=== PATIENT | male | born 1955 | race Caucasian/White ===

== ENCOUNTER → 2018-12-12 16:40 | Outpatient (CLI) | payer OTHER, SELFPAY ==
--- NOTE | 2018-12-12 | IMM_PTH ---
PATIENT: NOÉ TIDWELL LOC: [facility] U#:[id number] AGE/SX: 70/M ROOM: RE12/12/[address]: Dr. Calin Michelle MD : 1955 BED: DIS: SPEC #: [id number] RECD: 12/14/18 12:30 STATUS: HARINI SLICK #: [id number] MARIO: 12/12/18 00:[address]: Calin Michelle DEPT: IMMUNOHISTOCHEMISTRY RECD BY: Radha Mendoza Tissues: A - PROSTATE RIGHT B - PROSTATE RIGHT E - PROSTATE LEFT Procedures: 34BE12 (add) P40 (add) 34BE12 (initial) PHYSICIAN & [place] [id number] SPECIMEN INFORMATION: Tissue Source: A - Right prostate apex, B - Right prostate mid, E - Left prostate mid Clinical Info: Elevated PSA Specimen Number: [id number] A, B & E CPT code: 00024, 67338 x5 METHODOLOGY: Deparaffinized sections of prefer/formalin-fixed tissue or PAP/DQ stained slides are incubated with monoclonal/polyclonal antibodies/oligonucleotide probes. Localization is made via biotin free immunoperoxidase method. Appropriate controls are performed and reacted as expected. Results on target cell population are indicated in the following table: RESULTS: ANTIBODY / CLONE RESULT Block A P40 (BC28) negative 34BE12 (34BE12) negative Block B P40 (BC28) negative 34BE12 (34BE12) negative Block E P40 (BC28) negative 34BE12 (34BE12) negative These tests were developed and their performance characteristics determined by [facility]. They may not have been cleared or approved by the U.S. Food and Drug Administration. The FDA has determined that such clearance or approval is not necessary. INTERPRETATION: A. Right prostate, apex, core biopsy: A minute focus of adenocarcinoma. B. Right prostate, mid, core biopsy: Adenocarcinoma. E. Left prostate, mid, core biopsy: Adenocarcinoma. AM:alvarez 12/15/18
--- NOTE | 2018-12-12 08:00 | PROSBIL_PTH ---
PATIENT: NOÉ TIDWELL LOC: [facility] U#:[id number] AGE/SX: 70/M ROOM: RE12/12/[address]: Dr. Calin Michelle MD : 1955 BED: DIS: SPEC #: [id number] RECD: 12/13/18 08:47 STATUS: HARINI SLICK #: [id number] MARIO: 12/12/18 08:[address]: Calin Michelle DEPT: SURGICAL PATHOLOGY RECD BY: Blas Durand Tissues: A - PROSTATE RIGHT B - PROSTATE RIGHT C - PROSTATE RIGHT D - PROSTATE LEFT E - PROSTATE LEFT F - PROSTATE LEFT Procedures: PROSTATE BX HEADER OPERATION: Prostate biopsy PRE-OP DIAGNOSIS: Elevated PSA TISSUE SUBMITTED: A - Right apex, B - Right mid, C - Right base, D - Left apex, E - Left mid, F - Left base MICROSCOPIC DIAGNOSIS A. Right prostate, apex, core biopsy: A minute focus of prostatic adenocarcinoma: Midland grade: 3+3=6 Number of cores involved: 1 out of 1 Proportion of tissue involved: <5% Perineural invasion: Not identified. Greatest tumor length: <0.1 cm See comment. B. Right prostate, mid, core biopsy: Prostatic adenocarcinoma: Yoel grade: 3+4=7 Number of cores involved: 1 out of 1 Proportion of tissue involved: ~50% Perineural invasion: Not identified. Greatest tumor length: ~2 mm See comment. C. Right prostate, base, core biopsy: Prostatic adenocarcinoma: Midland grade: 3+4=7 Number of cores involved: 2 out of 2 Proportion of tissue involved: ~80% Perineural invasion: present, focal. Greatest tumor length: 0.8 cm (discontinuous) D. Left prostate, apex, core biopsy: Prostatic stromal tissue, negative for malignancy. E. Left prostate, mid, core biopsy: Prostatic adenocarcinoma: Yoel grade: 3+3=6 Number of cores involved: 3 out of 3 Proportion of tissue involved: ~5% Perineural invasion: Not identified. Greatest tumor length: 0.2 cm (discontinuous) Focal high-grade prostatic intraepithelial neoplasia (HGPIN). See comment. F. Left prostate, base, core biopsy: Prostatic adenocarcinoma: Midland grade: 3+4=7 Number of cores involved: 2 out of 2 Proportion of tissue involved: ~75% Perineural invasion: Not identified. Greatest tumor length: 1 cm SJ:alvarez 12/14/18 COMMENT A, B & E - Immunohistochemistry ([id number]) supports the above diagnosis. Case has been reviewed in consultation with Dr. Brennan who concurs with the above diagnosis. IDC:AM MICROSCOPIC DESCRIPTION Slides are reviewed. GROSS DESCRIPTION A - Received is one container designated prostate, right apex. The specimen consists of one elongated fragment of light larios-white soft tissue measuring 0.5 cm in length and 0.1 cm in diameter. Also present in the container are two minute fragments of larios soft tissue each measuring 0.1 cm in greatest dimension. The specimen is totally submitted in one cassette. B - Received is one container designated prostate, right mid. The specimen consists of one elongated fragment of light larios-white soft tissue measuring 1 cm in length and 0.1 cm in diameter. Also present in the container are three minute fragments of larios soft tissue each measuring 0.1 cm in greatest dimension. The specimen is totally submitted in one cassette. C - Received is one container designated prostate, right base. The specimen consists of two elongated fragments of light larios-white soft tissue measuring 1 and 1.2 cm in length and 0.1 cm in diameter. The specimen is totally submitted in one cassette. D - Received is one container designated prostate, left apex. The specimen consists of two elongated fragments of light larios-white soft tissue measuring 0.5 and 1.5 cm in length and 0.1 cm in diameter. The specimen is totally submitted in one cassette. E - Received is one container designated prostate, left mid. The specimen consists of three elongated fragments of light larios-white soft tissue measuring 0.8 to 1 cm in length and 0.1 cm in diameter. The specimen is totally submitted in one cassette. F - Received is one container designated prostate, left base. The specimen consists of two elongated fragments of light larios-white soft tissue measuring 1 and 1.4 cm in length and 0.1 cm in diameter. The specimen is totally submitted in one cassette. / SJ:alvarez 12/13/18 TC:0 CPT: 37786 x6
== END ==
PROVIDERS: Referring Provider Urology; Visit Provider Urology
DX: R97.20 Elevated prostate specific antigen [PSA] (principal)
CPT/HCPCS: 88305; 88341; 88342; G0416

== ENCOUNTER → 2018-12-20 07:41 | Outpatient (CLI) | payer OTHER, SELFPAY ==
--- NOTE | 2018-12-20 07:49 | CT_ITS ---
STUDY: CT ABDOMEN AND PELVIS WITH CONTRAST REASON FOR EXAM: Male, 63 years old. Prostate cancer. RADIATION DOSAGE (If Supplied By Facility): CTDIvol = ( 17.93 ) mGy, DLP = ( 1964.96 ) mGycm TECHNIQUE: Transaxial images were obtained from the dome of the diaphragm to the symphysis pubis without oral contrast. Isovue 300 100 IV was administered. Sagittal and coronal images were reconstructed. Individualized dose optimization techniques were used for this CT. COMPARISON: None. FINDINGS: The visualized lung bases are unremarkable. The visualized portions of the heart are within normal limits. Hypoattenuated lesion at the liver dome . Small hypoattenuated lesion adjacent to the gallbladder fossa, too small to characterize. Normal gallbladder and extrahepatic biliary system. Normal spleen. Normal pancreas. Normal bilateral adrenal glands. Normal right kidney. Normal left kidney. Normal bilateral ureters. Normal visualized stomach. Normal small intestine. Mild diverticular disease of the sigmoid colon with no localized inflammation.. The appendix is visualized and appears normal. Mild left carotid calcification of the abdominal vasculature. Normal inferior vena cava. Normal retroperitoneum. Normal urinary bladder. Degenerative change of the lumbar spine. Abdominal wall is intact. CT/Abdomen/Pelvis WITH Contrast IMPRESSION: 1. Cyst versus hemangioma at the liver dome. 2. Hypoattenuated focus adjacent to the gallbladder fossa which is too small to characterize but likely represents cysts versus hemangioma. 3. Sigmoid colonic diverticulosis with no evidence of acute diverticulitis. Electronically Signed: Kevin Weeks MD at 3:23 EST Tel , Service support ,
[2018-12-20 08:11] LABS: CREATININE FINGERSTICK 0.9 mg/dL (0.70-1.30); EGFR FINGERSTICK > 60.0000 mL/min (>60)
== END ==
PROVIDERS: Internal Medicine Medical Oncology; Referring Provider Urology; Visit Provider Urology
DX: C61 Malignant neoplasm of prostate (principal)
CPT/HCPCS: 74177; Q9967

== ENCOUNTER → 2018-12-23 10:18 | Outpatient (CLI) | payer OTHER, SELFPAY ==
--- NOTE | 2018-12-23 10:24 | NM_ITS ---
CLINICAL: 63-year-old male with reported history of carcinoma of the prostate. WHOLE BODY 99m Tc MDP RADIONUCLIDE BONE SCINTIGRAPHY COMPARISON: CT of the abdomen-pelvis report 12/20/2018 FINDINGS: Following the intravenous administration of 26.7 mCi of 99m Tc MDP, whole body bone images reveal: 1. Increased radiopharmaceutical concentration is identified in the eighth and 10th thoracic vertebra posteriorly on the right, the acromioclavicular and sternoclavicular compartments of both shoulders, fifth lumbar vertebra posteriorly on the right, left posterior sacrum, the bilateral wrist articulations, right-left hands, the left knee, bilateral ankles, midfoot bilaterally. 2. The remaining skeletal structures are scintigraphically unremarkable with normal-appearing renal images and urinary bladder activity identified. The left hip arthroplasty is defined without evidence of significant increased radiopharmaceutical concentration. An increase in uptake is defined in the left lacrimal bone, the bilateral mandible and maxilla most consistent with periostitis. NM/Bone Scan Whole Body IMPRESSION: 1. The increase in radiopharmaceutical concentration identified in the thoracic and lumbar spine, sacrum, bilateral shoulders, right and left wrists, both hands, the left knee, ankles bilaterally, the right-left midfoot is most consistent with degenerative arthritis. 2. There is no definitive typical scintigraphic evidence of skeletal metastatic disease on the current examination. Electronically Signed: Donnie Vila DO at 12:52 EST Tel , Service support ,
== END ==
PROVIDERS: Referring Provider Urology; Visit Provider Urology
DX: C61 Malignant neoplasm of prostate (principal)
CPT/HCPCS: 78306

== ENCOUNTER 2019-01-25 05:53 | Day surgery (SDC) | payer OTHER, SELFPAY ==
[2019-01-17 12:59] VITALS: BP 143/84; PULSE 73; RESP 16; TEMP 36.9; O2SAT 98; BMI 32.1
--- NOTE | 2019-01-17 13:15 | SDCEKG_ITS ---
Test Reason : Blood Pressure : / mmHG Vent. Rate : 075 BPM Atrial Rate : 075 BPM P-R Int : 170 ms QRS Dur : 098 ms QT Int : 406 ms P-R-T Axes : 049 -16 029 degrees QTc Int : 453 ms Normal sinus rhythm Incomplete right bundle branch block Borderline ECG Confirmed by DIAMOND BARRIENTOS, GERARDO ([id number]), metropolitan editor LINH DINH ([id number]) on 01/18/2019 8:55:58 AM Referred By: Calin Michelle Confirmed By:GERARDO FIELDS MD
[2019-01-17 13:56] LABS: Hematocrit 42.8 % (40-54); Hemoglobin 14.6 g/dl (13.0-16.5); Mean Corp Hgb Conc 34.1 g/gl (32-36); Mean Corpuscular Hgb 31.3 pg (27.0-32.0); Mean Corpuscular Volume 91.8 fL (80-94); Mean Platelet Vol. 9.2 fl (6.2-12.0); Platelet Count 243 K/mm3 (150-450); RBC Distribution Width CV 12.9 % (11.6-14.6); RBC Distribution Width SD 42.6 fl (35.1-43.9); Red Blood Count 4.66 M/mm3 (4.6-6.2); Scan Indicated on CBC? Y/N NO; White Blood Count 6.6 K/mm3 (4.4-11.0)
[2019-01-17 14:04] LABS: Anion Gap 5 (5-15); BUN 14 mg/dL (7-18); BUN/Creat Ratio 16.9 RATIO (10-20); Calcium,Total 8.8 mg/dL (8.5-10.1); Chloride 100 mmol/L (98-107); Creatinine, Serum 0.83 mg/dL (0.70-1.30); EST Glomerular Filtration Rate 100 mL/min (>60); Est Glom Filt Rate - Afr Amer 120 mL/min (>60); Estimated Creatinine Clearance 84.06 ml/min; Glucose 103 mg/dL (74-106); Potassium 3.6 mmol/L (3.5-5.1); Sodium Level 134 mmol/L (136-145)
--- NOTE | 2019-01-24 14:21 | PCM.HP.BLA ---
History and Physical Date of Admission: 01/25/19 I have prostate cancer. HPI: NOÉ TIDWELL is a 63 year-old male established patient who is here evaluation for treatment of prostate cancer. His prostate cancer was diagnosed 2 weeks ago. His cancer was diagnosed by Dr Michelle. His cancer was diagnosed at [facility]. His PSA at his time of diagnosis was 33. He does not have urinary incontinence. He does not have problems with erectile dysfunction. He has not recently had unwanted weight loss. He is not having pain in new locations. He does have a good appetite. His bowels are moving normally. His most recent PSA is 33. Yoel score 7=(3+4). No perineural invasion. Bone scan negative for any metastatic disease. CT scan was negative for any metastatic disease. wants to proceed with Surgery AUA Symptom Score: He never has to get up to urinate from the time he goes to bed until the time he gets up in the morning. ALLERGIES: None MEDICATIONS: Hydrochlorothiazide Metoprolol Succinate Multivitamin PSH: Hernia Repair Prostate Needle Biopsy - 12/12/2018 Transrectal Biopsy US - 12/12/2018 NON- PSH: Colonoscopy - 2014 Hip Replacement, Left Patient not documented to have received pneumococcal vaccination PMH: Malignant neoplasm of prostate - 12/26/2018 ? Histology/Primary Site: Adenocarcinoma, no subtype (morphologic abnormality), Malignant neoplasm of prostate ? Robbinston Score: 7 (3+4) ? Clinical Staging: [id number], Stage IIC ? Diagnostic Confirmation: Positive histology ? Behaviour, Grade: Uncertain whether benign or malignant, Not applicable ? Laterality: Bilateral ? Provider at the office diagnosed the cancer ? Notes: psa 33 Elevated prostate specific antigen [PSA] - 11/17/2018 Nodular prostate without lower urinary tract symptoms - 11/17/2018 NON- PMH: Essential (primary) hypertension Unspecified hearing loss, unspecified ear Immunizations: None FAMILY HISTORY: None SOCIAL HISTORY: Marital Status: Preferred Language: Tunisian; Ethnicity: Not Or ; Race: White Current Smoking Status: Patient has never smoked. Tobacco Use Assessment Completed: Used Tobacco in last 30 days? Smoking cessation counseling was provided. Does not use smokeless tobacco. Does drink. Does not use drugs. Drinks 4+ caffeinated drinks per day. Has not had a blood transfusion. REVIEW OF SYSTEMS: Constitutional: Patient denies fever, chills, weight loss, and weight gain. Eyes: Patient denies blurry vision, cataracts, and vision problems. Ears, Nose, Mouth, Throat: Patient reports hearing loss. Patient denies sinus infections, nasal stuffiness, and sleep apnea. Cardiovascular: Patient denies chest pains, swollen ankles, irregular heartbeat, and pacemaker/defibrillator. Respiratory: Patient denies shortness of breath, wheezing, use oxygen, cpap at night., and copd. Gastrointestinal: Patient denies abdominal pain, change in bowels, and nausea/vomiting. Genitourinary: Patient denies frequent urination, urinary retention, get up at night to void, leakage of urine, blood in urine, frequent urinary tract infections, history of stones, difficulty starting stream, weak stream, and bedwetting. Musculoskeletal: Patient denies sore muscles, back pain, gout, and arthritis. Integumentary/Skin: Patient denies rash, persistent itching, and skin cancer history. Neurological: Patient denies numbness, dizziness, stroke/tia, and history of falling/unsteadiness.. Hematologic/Lymphatic: Patient denies swollen glands, abnormal bleeding, transfusion history, and blood clots/dvt/pulmonary embolism. Notes: Reviewed previous review of systems 12/26/2018. No changes. VITAL SIGNS: 01/17/2019 01:42 PM Weight 190 lb / 86.18 kg Height 67 in / 170.18 cm BP 140/80 mmHg BMI 29.8 kg/m? - BMI Counseling was provided. PHYSICAL EXAMINATION: Anus and Perineum: No hemorrhoids. No anal stenosis. No rectal fissure, no anal fissure. No edema, no dimple, no perineal tenderness, no anal tenderness. Scrotum: No lesions. No edema. No cysts. No warts. Epididymides: Right: no spermatocele, no masses, no cysts, no tenderness, no induration, no enlargement. Left: no spermatocele, no masses, no cysts, no tenderness, no induration, no enlargement. Testes: No tenderness, no swelling, no enlargement left testes. No tenderness, no swelling, no enlargement right testes. Normal location left testes. Normal location right testes. No mass, no cyst, no varicocele, no hydrocele left testes. No mass, no cyst, no varicocele, no hydrocele right testes. Urethral Meatus: Normal size. No lesion, no wart, no discharge, no polyp. Normal location. Penis: Penis uncircumcised. No foreskin warts, no cracks. No dorsal peyronie's plaques, no left corporal peyronie's plaques, no right corporal peyronie's plaques, no scarring, no shaft warts. No balanitis, no meatal stenosis. Prostate: Prostate about 30 grams. Right lobe firm. Left lobe normal consistency. Symmetrical lobes. No prostate nodule. Left lobe no tenderness, right lobe no tenderness. Seminal Vesicles: Nonpalpable. Sphincter Tone: Normal sphincter. No rectal tenderness. No rectal mass. MULTI-SYSTEM PHYSICAL EXAMINATION: Constitutional: Well-nourished. No physical deformities. Normally developed. Good grooming. Neck: Neck symmetrical, not swollen. Normal tracheal position. Respiratory: No labored breathing, no use of accessory muscles. Lymphatic: No enlargement of neck, axillae, groin. Neurologic / Psychiatric: Oriented to time, oriented to place, oriented to person. No depression, no anxiety, no agitation. Gastrointestinal: No mass, no tenderness, no rigidity, non obese abdomen. Eyes: Normal conjunctivae. Normal eyelids. Musculoskeletal: Normal gait PAST DATA REVIEWED: Source Of History: Patient 10/20/18 PSA Total PSA 33.49 PROCEDURES: Urinalysis - [address]663 Dipstick Dipstick Cont'd Specimen: Voided Blood: Neg Appearance: Clear pH: 8.0 Color: Yellow Protein: Neg Glucose: Normal Urobilinogen: Neg Bilirubin: Neg Nitrites: Neg Ketones: Neg Leukocyte Esterase: Neg ASSESSMENT: ICD-10 Details 1 : Malignant neoplasm of prostate - C61 2 Elevated prostate specific antigen [PSA] - R97.20 3 Nodular prostate without lower urinary tract symptoms - N40.2 PLAN: Document Letter(s): Created for Patient: Clinical Summary Notes: already had XRT in the past, recommended robotic radical prostectomy discussed possible to have incontinence and loss erections or fail to cure and needs more treatments post op. Will proceed with robotic radical prostatectomy will b/l nerve sparing, bowel prep instructions given.
[2019-01-25] VITALS (13 sets, daily range): BP systolic 109–163; BP diastolic 68–95; PULSE 73–108; RESP 16–18; TEMP 36.6–37.7; O2SAT 92–99; BMI 32.1
--- NOTE | 2019-01-25 | PROST_PTH ---
PATIENT: NOÉ TIDWELL LOC: [facility] U#:[id number] AGE/SX: 63/M ROOM: RE01/25/[address]: Dr. Calin Michelle MD : 1955 BED: DIS: 01/26/2019 SPEC #: [id number] RECD: 01/25/19 09:07 STATUS: HARINI RE #: [id number] MARIO: 01/25/19 00:[address]: Calin Michelle DEPT: SURGICAL PATHOLOGY RECD BY: Radha Mendoza ENTERED: 01/25/19 10:41 SP TYPE: PROSTATE OTHR DR: Dr. Sheila Harvey, DO Tissues: A - Lymph node of pelvis, NOS B - Prostate, NOS C - Prostate, NOS D - Lymph node, NOS Procedures: Frozen Section (charge) Surgery Specimen Level IV Surgery Specimen Level V Surgery Specimen Level Comments: @ Specimen number changed from [id number] to [id number] @ on 01/25/19 at 1251 by MARY. HEADER OPERATION: Laparoscopic robotic radical prostatectomy PRE-OP DIAGNOSIS: Malignant neoplasm of prostate, elevated PSA TISSUE SUBMITTED: A - Right pelvic lymph node packet sent for FS at 0903, B - Prostate, C - Fat over prostate, D - Left pelvic lymph node packet FROZEN SECTION DIAGNOSIS A. Right pelvic lymph nodes, biopsy: Three out of three lymph nodes, negative for metastatic carcinoma. SJ:alvarez 01/25/19 MICROSCOPIC DIAGNOSIS A. Right pelvic lymph nodes, biopsy: Three out of three lymph nodes, negative for carcinoma. B. Prostate, radical prostatectomy: Adenocarcinoma. C. Fat over prostate, biopsy: Mature adipose tissue. No evidence of carcinoma. D. Left pelvic lymph node, biopsy: One out of one lymph node, negative for carcinoma. AM:alvarez 01/27/19 COMMENT B. PROSTATE CANCER (RADICAL) SUMMARY: Procedure - radical prostatectomy Prostate size - 4.2 x 3.6 x 3.5 cm Lymph node sampling - see specimens A & D Histologic type - adenocarcinoma Histologic grade (Yoel Pattern): Primary pattern - 4 Secondary pattern - 3 Tertiary pattern - 5 Total Glen score - 7 Tumor Quantitation - 4.2 x 3.3 x 3.2 cm (from glass slides) Extraprostatic extension - present, focal Seminal vesicle invasion - present Margins - uninvolved by invasive carcinoma Treatment effect on carcinoma - unknown Lymph-Vascular invasion - not identified Perineural invasion - present, extensive PATHOLOGIC STAGE: pT3b N0 Mx The above summary is in compliance with [employer] [place] [employer] (CAP) Cancer Protocols Checklist and [place] Joint Committee on Cancer (AJCC), Staging Manual, 8th Ed. Prostate adenocarcinoma is identified in the shaved biopsy of the apex and is also noted in the most basal section of the prostate gland. Carcinoma extends into the seminal vesicles and is noted in the fibrofatty tissue adjacent to the seminal vesicles. Clinical correlation is suggested. Case has been reviewed in consultation with Dr. Santana who concurs with the above diagnosis. IDC:SJ MICROSCOPIC DESCRIPTION Slides are reviewed. GROSS DESCRIPTION A - Received fresh for frozen section diagnosis labeled with the patient's name is a specimen designated right pelvic lymph node packet. The specimen consists of a piece of adipose tissue measuring 4 x 2 x 1 cm. Three nodules consistent with lymph nodes are identified measuring 0.5 to 1.5 cm in greatest dimension. The entire specimen is submitted in three cassettes as follows: 1 - FS, two lymph nodes, one lymph node inked black, 2 - FS, one lymph node, 3 - rest of the specimen. / PETER:alvarez 01/25/19 B - Received in fixative is one container labeled with the patient's name and designated prostate. The weight of the prostate is 44 gm and the prostate measures 3.6 cm transversely, 3.5 cm anterior-posteriorly and 4.2 cm craniocaudally. The specimen is differentially inked as follows: anterior - red, right half - blue, left half - green and entire posterior surface - black. The specimen is serially sectioned. No distinct mass lesions are identified. The prostate is serially sectioned in approximately 3-4 mm intervals. Eligibility Analyst sections are submitted as follows: 1 - distal urethral margin - shave, 2 - proximal urethral margin (bladder shave), 3 - seminal vesicles, 4 & 5 - prostate, most basal section, 6 & 7 - apex, 8-13 - mid portion of prostate, 14-20 - basal portion of prostate. / AM:alvarez 01/26/19 C - Received in fixative is one container labeled with the patient's name and designated fat over prostate. The specimen consists of a piece of yellow adipose tissue measuring 3.5 x 2.5 x 0.5 cm. No mass lesion is identified. The entire specimen is submitted in two cassettes. Sections will be submitted after overnight fixation. / SJ:alvarez 01/25/19 D - Received in fixative is one container labeled with the patient's name and designated left pelvic lymph node packet. The specimen consists of a piece of yellow adipose tissue measuring 5.5 x 3 x 0.5 cm. Two possible lymph nodes are identified measuring 1 and 1.5 cm in greatest dimension. The entire specimen is submitted in three cassettes as follows: 1 - two possible lymph nodes, 2 & 3 - rest of the specimen. / :alvarez 01/25/19 TC:0 CPT: 18532, 69579 x2, 49304, 79422
[2019-01-25] MEDS: Cefazolin 2 GM in 0.9% Normal Saline 100 ML IV (07:29)
--- NOTE | 2019-01-25 07:42 | HP.PCM_ITS ---
History of Present Illness The patient is a 63 year old M [] Past Medical History Allergies No Known Allergies Allergy (Verified 01/17/19 12:56) Home Medications: Ambulatory Orders Medication Instructions Recorded Famotidine [Pepcid] 20 mg PO DAILY 01/17/19 Hydrochlorothiazide [Hctz] 25 mg PO DAILY 01/17/19 Metoprolol Succinate [Toprol Xl] 50 mg PO DAILY 01/17/19 Multivit-Min/FA/Lycopen/Lutein 1 each PO DAILY 01/17/19 [Centrum Silver Men Tablet] Windber-3 Fatty Acids/Fish Oil [Fish 1 each PO DAILY 01/17/19 Oil 1,000 mg Capsule] Smoking Status: Never smoker - Physical Exam Vital Signs Temp Pulse Resp BP Pulse Ox 98.3 F 73 16 154/84 H 98 01/25/19 06:23 01/25/19 06:23 01/25/19 06:23 01/25/19 06:23 01/25/19 06:23 Oxygen Delivery Method Room Air Weight: 93.2 kg Body Mass Index (BMI) 32.1
[2019-01-25] MEDS: Bupivacaine Mpf 0.5% 30 ML VIAL (11:30)
--- NOTE | 2019-01-25 11:35 | OP.PCM_ITS ---
Report of Operation Date of Procedure: 01/25/19 Pre-Operative Diagnosis: Prostate cancer Post-Operative Diagnosis: The same Surgery/Procedure Performed:: Laparoscopic robotic assisted radical prostatectomy with bilateral nerve sparing, bilateral pelvic lymph node dissecti on, EMG monitoring of pelvic sphincter and nerves, suture suspension of the urethra. Description of Surgical Findings:: 63-year-old male taken back to the operating room after smooth induction of general anesthesia he is placed in dorsolithotomy position the abdomen penis and testicles were prepped and draped in usual sterile fashion for a robotic approach to the prostate, he was placed in the lithotomy position with the legs in stirrups. We made sure he all the pressure points were padded. I then made a small incision in the supra umbilicus transverse and infiltrated the skin with lidocaine. We then used a hemostat to spread the tissue and then identified the fascia. I then advanced the Veress needle into the peritoneal cavity and we insufflated the peritoneal cavity CO2 gas once we reached the pressures of 15 mmHg then we placed our camera trocar inspected the abdomen is no signs of injury or trauma I then placed my right arm trocar left arm trocar and second left arm trocar medical receptionist assistant suction port 5 mm and a air seal port once all the ports were placed with Dr. 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 After dissecting of the right vesicle in the left sternal vesicle on the vas deferens that I dissected below the prostate that did not be his fascia we dissected below the Gemma/above the rectal fat all the way below below the prostate. I then pulled out the pelvis we then dropped the bladder and created the space of Retzius put the bladder on traction with the fourth arm and then went to the top of the prostate we cleaned off all the fat on top of the prostate sent off as a specimen. We then proceeded with the lymph node dissection on the pelvic lateral wall we did a complete lymph nipple dissection using the obturator nerve the lateral pelvic wall the pubic rami and the external iliac vein as a landmarks all the lymph node tissue was dissected out here this was sent off as a permanent section we went to the right side and dissected the lymph dissection just as described I had used several clips and some minor arterial bleeders on the right side we did set up the right side for frozen section they identified 3 lymph nodes in the lymph nodes were negative with cancer. We then proceeded with the prostate we incised the endopelvic fascia in the right and left side dissected to the apex I then transected the e ndopelvic fascia above the dorsal vein clot complex then placed a stitch in the dorsal vein complex. We then pulled back between the junction between the bladder and the prostate dissected between the bladder and prostate until we reached the catheter deflated the balloon and the catheter and then dissected between the bladder and prostate until we reach the seminal vesicle and vas deferens these were pulled up. We then placed the EMG electrodes into the abdomen places on the lateral pelvic wall identified the nerve complex on the right side identify the nerve complex on the left side using the EMG electrodes and action potential to identify the tracings of these nerves. I then went to the pedicle of the prostate in the right base pedicle was quite thick took Q clips to get through the pedicle and then once the pedicles taken then I was able to identify the neurovascular bundle on the posterior aspect of the right prostate and dissected the neurovascular bundle of the right prostate really nicely all the way up to the apex there went to the left side and again the pedicle was very thickened and the left side took multiple clips to get to the pedicle and then identified the neurovascular bundle this was freed up off the lateral aspect of the prostate all the way up to the apex we then transected to the dorsal vein complex I placed an extra stitch in the dorsal vein complex for hemostatic reasons we lower the pressure and there was no bleeding from the dorsal vein complex I then transected to the urethral stump we created a nice long stump transected at the stump and then the prostate was put in the Endo Catch bag we then completed the anastomosis and the suture suspension of the urethra with 30V lock stitch running this suture from the urethra suspension to the bladder neck after this was completed that we put a catheter and we flush the catheter catheter flushed well. We checked the EMG electrodes on the urethral stump and the stump was intervening and reacting nicely coapted nicely. We then extracted the prostate to the umbilical site we closed the Beau Hendrickson stitch on the air seal port site patient anesthetic was reversed the catheter was flushed it was clear he was taken back to PACU good condition I went spoke to the family after the procedure. Type of Anesthesia:: General Drains: OHRNE - Admit VTE Documentation VTE Present on Admission: No VTE Mechan Device Prophylaxis: SCD's VTE Pharm Prophylaxis ordered?: No
[2019-01-25] MEDS: Ketorolac 15 MG/ML Vial IV (12:36)
[2019-01-25 12:59] LABS: Hemoglobin 14.1 g/dl (13.0-16.5); Mean Corp Hgb Conc 34.4 g/gl (32-36); Mean Corpuscular Hgb 31.4 pg (27.0-32.0); Mean Corpuscular Volume 91.3 fL (80-94); Platelet Count 207 K/mm3 (150-450); RBC Distribution Width CV 13.1 % (11.6-14.6); RBC Distribution Width SD 43.5 fl (35.1-43.9); Red Blood Count 4.49 M/mm3 (4.6-6.2); White Blood Count 10.7 K/mm3 (4.4-11.0)
[2019-01-25 13:00] LABS: Scan Indicated on CBC? Y/N NO
[2019-01-25 13:14] LABS: Anion Gap 6 (5-15); BUN 10 mg/dL (7-18); BUN/Creat Ratio 11.4 RATIO (10-20); Calcium,Total 8.6 mg/dL (8.5-10.1); Chloride 102 mmol/L (98-107); Creatinine, Serum 0.87 mg/dL (0.70-1.30); EST Glomerular Filtration Rate 93 mL/min (>60); Est Glom Filt Rate - Afr Amer 113 mL/min (>60); Glucose 138 mg/dL (74-106); Potassium 3.7 mmol/L (3.5-5.1); Sodium Level 135 mmol/L (136-145)
[2019-01-25] MEDS: hydroCHLOROthiazide 25 MG Tablet PO (15:35)
[2019-01-25] MEDS: Docusate Sodium 100 MG Capsule 200 MG PO ×2 (15:35→23:48)
[2019-01-25] MEDS: Ciprofloxacin 400 MG/200 ML BAG 200 MG IV (15:36)
[2019-01-25] MEDS: Lactated Ringers 1,000 ML 150 ML IV (20:42)
--- NOTE | 2019-01-25 20:57 | NURSING ---
walked in [place] with rn gait steady
[2019-01-26 03:09] VITALS: BP 151/84; PULSE 81; RESP 16; TEMP 36.8; O2SAT 97
[2019-01-26] MEDS: Ciprofloxacin 400 MG/200 ML BAG 200 MG IV (03:12)
[2019-01-26] MEDS: Lactated Ringers 1,000 ML 150 ML IV (05:26)
[2019-01-26 06:34] LABS: Hematocrit 36.1 % (40-54); Hemoglobin 12.1 g/dl (13.0-16.5); Mean Corp Hgb Conc 33.5 g/gl (32-36); Mean Corpuscular Hgb 31.3 pg (27.0-32.0); Mean Corpuscular Volume 93.5 fL (80-94); Platelet Count 215 K/mm3 (150-450); RBC Distribution Width SD 43.4 fl (35.1-43.9); Red Blood Count 3.86 M/mm3 (4.6-6.2)
[2019-01-26 06:42] LABS: Scan Indicated on CBC? Y/N NO
[2019-01-26 06:51] LABS: BUN 6 mg/dL (7-18); Estimated Creatinine Clearance 99.67 ml/min; Glucose 117 mg/dL (74-106)
[2019-01-26 06:52] LABS: Anion Gap 7 (5-15); BUN/Creat Ratio 8.5 RATIO (10-20); Calcium,Total 8.2 mg/dL (8.5-10.1); Chloride 100 mmol/L (98-107); EST Glomerular Filtration Rate 120 mL/min (>60); Est Glom Filt Rate - Afr Amer 145 mL/min (>60); Potassium 3.4 mmol/L (3.5-5.1); Sodium Level 135 mmol/L (136-145)
[2019-01-26 07:51] VITALS: O2SAT 95
[2019-01-26 09:35] VITALS: BP 141/7; PULSE 83; RESP 16; TEMP 36.8; O2SAT 98
[2019-01-26] MEDS: Multivitamins,Ther W-Minerals Tablet 1 TABLET PO (09:36)
[2019-01-26 09:38] VITALS: PULSE 83
[2019-01-26] MEDS: Docusate Sodium 100 MG Capsule 200 MG PO (09:38)
[2019-01-26] MEDS: Metoprolol(XL)Succ 50 MG Tablet PO (09:38)
[2019-01-26] MEDS: hydroCHLOROthiazide 25 MG Tablet PO (09:38)
[2019-01-26] MEDS: Famotidine 20 MG Tablet PO (09:39)
--- NOTE | 2019-01-26 12:10 | PCM.DC.SUM ---
Discharge Date and Diagnosis Date of Admission: 01/25/19 Date of Discharge: 01/26/19 Hospital Course and Treatment Summary of Care Provided: The patient is a 63 year old male s/p radical prostatectomy doing well home with [place] and RX - Physical Exam General: Alert, Oriented x3, Cooperative HEENT: Atraumatic, PERRLA, EOMI, Normocephalic Neck: Supple, No JVD, Negative Carotid Bruits Lungs: Clear to auscultation, Normal air movement Cardiovascular: Regular rate, No murmurs Abdomen: Bowel Sounds Present, Soft, Non Tender Extremities: No edema, Capillary Refill Less than 3 Seconds Skin: No rashes, No breakdown Musculoskeletal: No Tenderness to Palpation of Joints or Extremities Neurological: Cranial nerves II-XII grossly intact Psych/Mental Status: Normal Affect, Appropriate Vital Signs Temp Pulse Resp BP Pulse Ox 98.3 F 83 16 141/7 H 98 01/26/19 09:35 01/26/19 09:38 01/26/19 09:35 01/26/19 09:35 01/26/19 09:35 Oxygen Delivery Method Room Air Weight: 93.2 kg Body Mass Index (BMI) 32.1 Intake and Output for Last 24 Hours 01/24/19 01/25/19 01/26/19 23:59 23:59 23:59 Intake Total 5303 / 5303 873 / 873 Output Total 965 / 965 1325 / 1325 Balance 4338 / 4338 -452 / -452 Laboratory Tests Past 24 Hrs 01/25/19 01/25/19 01/26/19 12:45 12:45 06:15 WBC 10.7 8.0 RBC 4.49 L 3.86 L Hgb 14.1 12.1 L Hct 41.0 36.1 L MCV 91.3 93.5 MCH 31.4 31.3 MCHC 34.4 33.5 RDW 13.1 13.0 RDW Differential 43.5 43.4 Plt Count 207 215 MPV 9.0 9.0 Sodium 135 L Potassium 3.7 Chloride 102 Carbon Dioxide 27.0 Anion Gap 6 BUN 10 Creatinine 0.87 Estim Creat Clear Calc 80.20 Est GFR (MDRD) Af Amer 113 Est GFR (MDRD) Non-Af 93 BUN/Creatinine Ratio 11.4 Glucose 138 H Calcium 8.6 01/26/19 06:15 WBC RBC Hgb Hct MCV MCH MCHC RDW RDW Differential Plt Count MPV Sodium 135 L Potassium 3.4 L Chloride 100 Carbon Dioxide 28.0 Anion Gap 7 BUN 6 L Creatinine 0.70 Estim Creat Clear Calc 99.67 Est GFR (MDRD) Af Amer 145 Est GFR (MDRD) Non-Af 120 BUN/Creatinine Ratio 8.5 L Glucose 117 H Calcium 8.2 L Discharge Diet: No Restrictions Home Medications: Medications to take at Discharge Famotidine [Pepcid] 20 mg PO DAILY 01/17/19 Hydrochlorothiazide [Hctz] 25 mg PO DAILY 01/17/19 Metoprolol Succinate [Toprol Xl] 50 mg PO DAILY 01/17/19 Multivit-Min/FA/Lycopen/Lutein [Centrum Silver Men Tablet] 1 each PO DAILY 01/17/19 [place]-3 Fatty Acids/Fish Oil [Fish Oil 1,000 mg Capsule] 1 each PO DAILY 01/17/19 Ciprofloxacin [Cipro] 500 mg PO BID #6 tab 01/25/19 Docusate Sodium [Colace] 100 mg PO BID #20 cap 01/25/19 Hydrocodone/Acetaminophen [[place] 5-325 Tablet] 1 ea PO Q4H PRN PRN 5 Days #14 tab 01/25/19 Following Prescrptions Were Given to Patient: Hydrocodone/Acetaminophen [[place] 5-325 Tablet] 1 ea PO Q4H PRN PRN 5 Days #14 tab PRN Reason: Pain Ciprofloxacin [Cipro] 500 mg PO BID #6 tab Docusate Sodium [Colace] 100 mg PO BID #20 cap Primary Care Physician: Sheila Harvey DO [Primary Care Provider] - Medical Necessity - Tobacco Use Smoking Status: Never smoker Meaningful Use Info Meaningful Use Diagnoses (Choose all that apply): None applicable
--- NOTE | 2019-01-26 13:06 | DCINST_ITS ---
Discharge Diet: No Restrictions, Light diet - advance as tolerated Discharge Activity: May not drive while taking narcotic pain medications., May Shower Call your doctor if your incision/area has: Continuous Slow Oozing, Sudden Increased Bleeding, Increased Pain/ Swelling, Increased Redness, Foul Smelling Discharge, Swelling at the incision site Call your doctor if you observe: Fever of 101 or Higher, Inability to have a bowel movement, Uncontrolled pain Suture Line Care: Avoid Pulling/Pushing, Avoid Pinching/Bending Catheter: [place] to leg bag, [place] to large bag Drain: [place] Instructions: Discharge Instructions for Radical Prostatectomy Allergies/Adverse Reactions: Allergies No Known Allergies Allergy (Verified 01/17/19 12:56) Medications to take at Discharge Famotidine [Pepcid] 20 mg PO DAILY 01/17/19 Hydrochlorothiazide [Hctz] 25 mg PO DAILY 01/17/19 Metoprolol Succinate [Toprol Xl] 50 mg PO DAILY 01/17/19 Multivit-Min/FA/Lycopen/Lutein [Centrum Silver Men Tablet] 1 each PO DAILY 01/17/19 [place]-3 Fatty Acids/Fish Oil [Fish Oil 1,000 mg Capsule] 1 each PO DAILY 01/17/19 Ciprofloxacin [Cipro] 500 mg PO BID #6 tab 01/25/19 Docusate Sodium [Colace] 100 mg PO BID #20 cap 01/25/19 Hydrocodone/Acetaminophen [[place] 5-325 Tablet] 1 ea PO Q4H PRN PRN 5 Days #14 tab 01/25/19 The following prescriptions were given: Hydrocodone/Acetaminophen [[place] 5-325 Tablet] 1 ea PO Q4H PRN PRN 5 Days #14 tab PRN Reason: Pain Ciprofloxacin [Cipro] 500 mg PO BID #6 tab Docusate Sodium [Colace] 100 mg PO BID #20 cap Primary Care Physician: Sheila Harvey DO [Primary Care Provider] - Test Results: Test results from this visit will be discussed in further detail at your follow- up appointment, if applicable. Please Follow Up With: Calin Michelle MD When: please call to make an appointment- next to remove she[place]
== END 2019-01-26 14:15 | disposition home or self-care (01) ==
LOC: SDC 05:54 → AC 05:54 → MS2 09:02
PROVIDERS: Anesthesiology; Referring Provider Urology; Visit Provider Urology
PROC: 0VT04ZZ Resection of Prostate, Percutaneous Endoscopic Approach (ICD-10-PCS; CPT 55866; principal; 2019-01-25 07:10)
DX: C61 Malignant neoplasm of prostate (principal); I10 Essential (primary) hypertension; R97.20 Elevated prostate specific antigen [PSA]; N40.2 Nodular prostate without lower urinary tract symptoms
CPT/HCPCS: 00860; 38571; 55866; 36415; 80048; 85027; 86850; 86900; 88305; 88307; 88309; 88331; 93005; J7120; J0744; J2405; J3490

== ENCOUNTER → 2019-04-28 10:08 | Outpatient (CLI) | payer OTHER, SELFPAY ==
[2019-01-25 13:49] VITALS: BMI 32.1
[2019-04-28 12:09] LABS: PSA,Total- Diagnostic 0.41 ng/mL (0.0-4.0)
== END ==
PROVIDERS: Referring Provider Urology; Visit Provider Urology
DX: C61 Malignant neoplasm of prostate (principal)
CPT/HCPCS: 36415; 84153

== ENCOUNTER → 2019-06-27 10:34 | Outpatient (CLI) | payer MEDICARE, OTHER, SELFPAY ==
[2019-01-25 13:49] VITALS: BMI 32.1
[2019-06-26 13:33] LABS: Absolute Lymphocyte Count 1.25 X10^3/uL (0.83-4.51); Basophil# 0.06 X10^3/uL; Basophil% 0.9 % (0-1); Eosinophil# 0.32 X10^3/uL; Hematocrit 43.6 % (40-54); Hemoglobin 15.2 g/dL (13.0-16.5); Lymphocyte # 1.25 X10^3/ul (4.0); Lymphocyte % 19.5 % (19-41); Mean Corp Hgb Conc 34.9 g/dL (32-36); Mean Corpuscular Hgb 31.4 pg (27.0-32.0); Mean Corpuscular Volume 90.1 fL (80-94); Mean Platelet Vol. 9.5 fl (6.2-12.0); Monocyte# 0.69 X10^3/uL; Monocyte% 10.8 % (0-10); NRBC Flagged by Analyzer 0 % (0-5); Neutrophil # 4.02 X10^3/uL (2.7-7.7); Neutrophil % 62.7 % (47-70); Platelet Count 262 K/mm3 (150-450); RBC Distribution Width CV 12.5 % (11.6-14.6); RBC Distribution Width SD 41.5 fl (35.1-43.9); Red Blood Count 4.84 M/mm3 (4.6-6.2); White Blood Count 6.4 K/mm3 (4.4-11.0)
[2019-06-26 13:59] LABS: Creatinine, Serum 0.83 mg/dL (0.70-1.30); EST Glomerular Filtration Rate 99 mL/min (>60); Est Glom Filt Rate - Afr Amer 119 mL/min (>60); PSA,Total- Diagnostic < 0.01 ng/mL (0.0-4.0)
--- NOTE | 2019-06-27 10:50 | CT_ITS ---
STUDY: CT PELVIS WITH CONTRAST REASON FOR EXAM: Male, 64 years old. History of prostate cancer. This is a radiation treatment planning examination. RADIATION DOSAGE (If Supplied By Facility): CTDIvol = ( 24.62 ) mGy, DLP = ( 745.69 ) mGycm TECHNIQUE: Transaxial imaging of the pelvis was performed without oral contrast. 100ml IV/Oral Isovue 300 was administered intravenously. Individualized dose optimization techniques were used for this CT. COMPARISON: None. FINDINGS: The bladder is of small capacity. The patient is status post prostatectomy. Metallic radiation seeds are seen in the prostate bed more prominent on the right side. The left hip replacement causes beam hardening artifact in the pelvis. Normal visualized small intestine. There are multiple colonic diverticula of the sigmoid colon consistent with chronic diverticulosis. There is no pelvic fluid. There is no pelvic lymphadenopathy or mass lesion. There is diffuse atherosclerotic calcification of the pelvic arteries. Normal abdominal wall. There are diffuse degenerative changes of the visualized lumbar spine. Status post left hip replacement. CT/CT Pelvis W/CONT Therapy IMPRESSION: Small capacity bladder. Status post prostatectomy. Electronically Signed: Naga Wilkerson, at 15:01 EDT , Service support ,
== END ==
LOC: CT 10:37
PROVIDERS: Referring Provider Radiology Radiation Oncology; Visit Provider Radiology Radiation Oncology
DX: C61 Malignant neoplasm of prostate (principal); Z01.818 Encounter for other preprocedural examination
CPT/HCPCS: 36415; 51600; 72193; 82565; 84153; 85025; Q9967

== ENCOUNTER → 2019-07-27 13:52 | Outpatient (CLI) | payer MEDICARE, OTHER, SELFPAY ==
[2019-01-25 13:49] VITALS: BMI 32.1
[2019-07-27 15:26] LABS: Absolute Lymphocyte Count 1.02 X10^3/uL (0.83-4.51); Absolute Neutrophil Count 3.8 X10^3/uL (2.0-7.7); Basophil# 0.06 X10^3/uL; Eosinophil# 0.32 X10^3/uL; Eosinophils% 5.4 % (0-5); Hematocrit 39.9 % (40-54); Hemoglobin 13.9 g/dL (13.0-16.5); Lymphocyte # 1.02 X10^3/ul (4.0); Lymphocyte % 17.1 % (19-41); Mean Corp Hgb Conc 34.8 g/dL (32-36); Mean Corpuscular Hgb 31.4 pg (27.0-32.0); Mean Corpuscular Volume 90.1 fL (80-94); Mean Platelet Vol. 9.2 fl (6.2-12.0); Monocyte# 0.68 X10^3/uL; Monocyte% 11.4 % (0-10); NRBC Flagged by Analyzer 0 % (0-5); Neutrophil % 63.9 % (47-70); Platelet Count 199 K/mm3 (150-450); RBC Distribution Width CV 12.9 % (11.6-14.6); RBC Distribution Width SD 42.9 fl (35.1-43.9); Red Blood Count 4.43 M/mm3 (4.6-6.2)
== END ==
PROVIDERS: Referring Provider Radiology Radiation Oncology; Visit Provider Radiology Radiation Oncology
DX: C61 Malignant neoplasm of prostate (principal)
CPT/HCPCS: 36415; 85025

== ENCOUNTER → 2019-08-18 11:59 | Outpatient (CLI) | payer MEDICARE, OTHER, SELFPAY ==
[2019-01-25 13:49] VITALS: BMI 32.1
[2019-08-18 13:03] LABS: Absolute Lymphocyte Count 0.85 X10^3/uL (0.83-4.51); Absolute Neutrophil Count 4.4 X10^3/uL (2.0-7.7); Basophil# 0.06 X10^3/uL; Basophil% 0.9 % (0-1); Eosinophil# 0.31 X10^3/uL; Eosinophils% 4.9 % (0-5); Hematocrit 40.9 % (40-54); Hemoglobin 14.1 g/dL (13.0-16.5); Lymphocyte # 0.85 X10^3/ul (4.0); Lymphocyte % 13.4 % (19-41); Mean Corp Hgb Conc 34.5 g/dL (32-36); Mean Corpuscular Hgb 31.8 pg (27.0-32.0); Mean Corpuscular Volume 92.3 fL (80-94); Mean Platelet Vol. 9.4 fl (6.2-12.0); NRBC Flagged by Analyzer 0 % (0-5); Neutrophil # 4.37 X10^3/uL (2.7-7.7); Platelet Count 223 K/mm3 (150-450); RBC Distribution Width CV 13.2 % (11.6-14.6); RBC Distribution Width SD 44.9 fl (35.1-43.9); Red Blood Count 4.43 M/mm3 (4.6-6.2); White Blood Count 6.3 K/mm3 (4.4-11.0)
== END ==
PROVIDERS: Referring Provider Radiology Radiation Oncology; Visit Provider Radiology Radiation Oncology
DX: C61 Malignant neoplasm of prostate (principal)
CPT/HCPCS: 36415; 85025

== ENCOUNTER → 2019-11-15 10:46 | Outpatient (CLI) | payer MEDICARE, OTHER, SELFPAY ==
[2019-01-25 13:49] VITALS: BMI 32.1
[2019-11-15 12:09] LABS: PSA,Total- Diagnostic < 0.01 ng/mL (0.0-4.0)
== END ==
PROVIDERS: Referring Provider Urology; Visit Provider Urology
DX: C61 Malignant neoplasm of prostate (principal)
CPT/HCPCS: 36415; 84153

== ENCOUNTER → 2020-02-15 | Outpatient (CLI) | payer MEDICARE, OTHER, SELFPAY ==
[2019-01-25 13:49] VITALS: BMI 32.1
[2020-02-15 14:06] LABS: PSA,Total- Diagnostic < 0.01 ng/mL (0.0-4.0)
== END | disposition home or self-care (01) ==
LOC: LAB 13:32
PROVIDERS: Referring Provider Urology; Visit Provider Urology
DX: C61 Malignant neoplasm of prostate (principal)
CPT/HCPCS: 36415; 84153